=== PATIENT | female | born 1980 | race Caucasian/White ===

== ENCOUNTER 2017-10-28 09:01 | Emergency (ER) | payer OTHER ==
[~2017-10-28] VITALS: Ht 160 cm; Wt 90.7 kg
[~2017-10-28 09:01] MED LIST: ALB17R INH; AZIT-9 PO; CETI1TAB75 PO; LACT1CAP6 PO; SULF-170 PO
--- NOTE | 2017-10-28 09:03 | ER Report ---
History and Physical Time Seen By MD: 09:02 HPI/ROS CHIEF COMPLAINT: Left-sided back pain HISTORY OF PRESENT ILLNESS: Patient is a 37-year-old female who presents to the emergency department with sudden onset of acute left flank and back pain. The pain began as a dull ache and rapidly increased in intensity is now radiating to the left groin area. It is currently 10 out of 10 and associated with nausea but no vomiting. Patient has no prior history of similar episodes denies any traumatic injury. She denies dysuria she denies fevers or chills. REVIEW OF SYSTEMS: Respiratory: No cough, no dyspnea. Cardiovascular: No chest pain, no palpitations. Gastrointestinal: No vomiting, no abdominal pain. Nausea Musculoskeletal: Left flank pain Allergies: Coded Allergies: No Known Allergies (Verified Allergy, Mild, 10/23/12) Home Meds Reported Medications Levothyroxine Sodium (LEVOTHYROXINE SODIUM) 100 Mcg Tablet, 100 MCG PO QDAY, TAB 10/28/17 Omeprazole (OMEPRAZOLE) 40 Mg Capsule.dr, 40 MG PO QDAY, CAP 10/28/17 Discontinued Reported Medications Azithromycin (Azithromycin) 250 Mg Tablet, 250 MG PO QDAY, #4 10/23/12 Azithromycin (Azithromycin) 250 Mg Tablet, 250 MG PO Q4H, #4 10/23/12 P-Ephed Hcl/Cetirizine Hcl (Zyrtec-D Tablet) 1 Tab.sr .12 H Tab.sr.12h, 1 TAB.SR PO BID, 0 Refills 04/04/09 Albuterol (Proventil Inhaler) 17 Gm Inh, 0 INH PRN, 0 Refills 1-2 PUFFS 04/04/09 Past Medical/Surgical History Noncontributory Hx Smoking: No Constitutional Vital Sign - Last 24 Hours 10/28/17 09:06 Temp 98.7 Pulse 78 Resp 18 B/P (MAP) 138/84 Pulse Ox 92 O2 Delivery Room Air Physical Exam General/Constitutional: Patient is awake, alert, nontoxic and in no acute respiratory distress. Appears in significant amount of pain Head: Normocephalic and atraumatic. Eyes: Conjunctival clear, Pupils are equal and reactive to light. Extraocular muscles are intact and symmetrical. Sclera are clear and anicteric. Ears:External canals are clear. Tympanic membranes are clear with normal landmarks and light reflex. Oropharyngeal: Mucous membranes are moist. Cardiovascular: Heart is regular rate and rhythm without audible murmurs, rubs or gallops. Pulmonary: Lungs are clear to auscultation bilaterally. There are no wheezes, rales, or rhonchi. Chest rise is symmetrical Abdomen: Soft, nontender, no guarding or peritoneal signs. Left-sided flank pain Extremities: No gross deformities, No peripheral cyanosis. Able to move all 4 extremities. Neuro: Alert Skin: No rashes, skin is warm dry and well perfused. Medical Decision Making Data Points Result Diagram: 10/28/17 0915 Laboratory Hematology Test 10/28/17 09:05 10/28/17 09:15 Urine HCG, Qualitative Negative (NEGATIVE) Sodium Level 140 mmol/L (137-145) Potassium Level 4.3 mmol/L (3.5-5.0) Chloride Level 102 mmol/L (98-107) Carbon Dioxide Level 23 mmol/L (22-31) Blood Urea Nitrogen 15 mg/dl (7-18) Creatinine 1.00 mg/dl (0.52-1.04) Glomerular Filtration Rate Calc > 60.0 Random Glucose 137 mg/dl (75-110) Calcium Level 9.5 mg/dl (8.4-10.2) Chemistry Test 10/28/17 09:05 10/28/17 09:15 Urine HCG, Qualitative Negative (NEGATIVE) Glomerular Filtration Rate Calc > 60.0 Calcium Level 9.5 mg/dl (8.4-10.2) Urinalysis Test 10/28/17 09:05 Urine HCG, Qualitative Negative (NEGATIVE) EKG/Imaging Imaging FACILITY: [facility] PATIENT NAME: Fatoumata Castro : 1980 MR: [id number] V: [id number] EXAM DATE: ORDERING PHYSICIAN: RD THOMAS TECHNOLOGIST: Location: [facility] Patient: Fatoumata Castro : 1980 Visit/Account:[id number] Date of Sevice: 10/28/2017 ABDOMEN/PELVIS W/O CONTRAST HISTORY: Left flank pain down into groin since 6:00 AM TECHNIQUE: Axial images acquired through the abdomen/pelvis. Coronal and sagittal reformatting also performed. No IV contrast administered. Dose Lowering Technique One of the following dose optimization techniques was utilized in the performance of this exam: Automated exposure control; adjustment of the mA and/ or kV according to the patient's size; or use of an iterative reconstruction technique. Specific details can be referenced in the facility's radiology CT exam operational policy. COMPARISON: None. FINDINGS: Visualized lung bases: There is a 4 mm noncalcified nodule lateral aspect of the left lower lobe best seen on image seven of series 5 . There is a 3 mm punctate calcified nodule abutting the major fissure on the right best seen on image 16 and a 5.8 mm noncalcified nodule posterior aspect right lower lobe best seen on image 45. There is a 3 mm subpleural nodule lateral aspect right lower lobe best seen on image 51 Hepatobiliary: Negative. Spleen: Negative. Adrenals: Negative. Pancreas: Negative. Kidneys ureters and bladder: There is a moderate left hydronephrosis and left hydroureter secondary to a 3 mm calculus in the distal left ureter. There is an additional 3 mm calcification at the left UVJ which may be within the ureter. There are several nonobstructing calculi seen in the left renal collecting system measuring up to 2 mm in diameter Genitalia: There is an IUD within the uterus GI: Negative. Vessels/spaces/nodes: Negative. Bones/soft tissues: There is a small umbilical hernia containing fat. There is a broad-based disc bulge at L5-S1 Additional findings: None pertinent. IMPRESSION: There is a moderate left hydronephrosis and left hydroureter secondary to a 3 mm calculus in the distal left ureter. There is additional 3 mm calcination at the left UVJ which may be within the distal left ureter as well.. Several nonobstructing calculi are seen in the left renal collecting system measuring up to 2 mm in diameter There are several bilateral pulmonary nodules measuring up to 5.8 mm in diameter. The Fleischner Society recommendations are as follows For multiple nodules measuring less than 6 mm, in a low risk patient (minimal or absent smoking history, no history of malignancy), no routine followup is recommended. In a high risk patient (smoking or malignancy history), optional 12 month followup can be obtained. Small focal hernia containing fat Broad-based disc bulge L5-S1 Report Dictated By: Annalisa Henning MD at 10/28/2017 10:00 AM Report E-Signed By: Annalisa Henning MD at 10/28/2017 10:11 AM WSN:SILVANA ED Course/Re-evaluation ED Course 10/28/2017 9:38:40 am history and physical exam consistent with possible renal colic. Plan at this time will be IV we will get blood work for her basic metabolic panel urinalysis and test. We will give IV pain medications with IV Toradol, IV Dilaudid and IV Zofran. CT scan of the abdomen and pelvis was ordered and pending at this time Decision to Disposition Date: Oct 28, 2017 Decision to Disposition Time: 10:21 Depart Departure Latest Vital Signs Vital Signs Date Time Temp Pulse Resp B/P (MAP) Pulse Ox O2 Delivery O2 Flow Rate FiO2 10/28/17 09:06 98.7 78 18 138/84 92 Room Air Impression: Primary Impression: Kidney stone on left side Condition: Improved Disposition: HOME OR SELF-CARE Referrals: JACOBO SLADE MD (PCP) SAMUEL MILAN MD 2 Days If symptoms persist New Scripts Ondansetron Hcl (ZOFRAN) 4 Mg Tablet 4 MG PO Q8H for Nausea, #15 TAB 0 Refills Prov: RD THOMAS MD 10/28/17 Oxycodone Hcl/Acetaminophen (PERCOCET 5-325 MG TABLET) 1 Each Tablet 1-2 EACH PO Q4-6H for PAIN, #30 TAB 0 Refills Prov: RD THOMAS MD 10/28/17 Departure Forms: ER Transition Record, Medications Reconciliation, Off Work/ School Form, School or Work Release?: Work Number of days to be released: 2 Patient Portal Information Patient Instructions: Kidney Stones (ED) Additional Instructions: Return to the emergency department any time if your pain is not controlled on your discharge pain medications return immediately if you develop fever or painful urination, follow-up either in the emergency department or with urology in 2-[address] days if symptoms persist [address] THOMAS MD Oct 28, 2017 09:03
[2017-10-28] MEDS ORDERED: ONDANSETRON 4 MG/2 ML VIAL IVP ONE (09:20)
[2017-10-28] MEDS ORDERED: HYDROmorphone(ER ONLY) 1 MG/ML IVP ONE (09:20)
[2017-10-28] MEDS ORDERED: KETOROLAC 15 MG/ML VIAL IVP ONE (09:20)
[2017-10-28] MEDS ORDERED: NS(*) 0.9% 1000 ML BAG 1,000 ML IV ONE (09:22)
[2017-10-28] MEDS ORDERED: OMEP40CA48 PO (09:28)
[2017-10-28] MEDS ORDERED: LEVO-3 PO (09:28)
--- NOTE | 2017-10-28 10:16 | RADIOLOGY IMAGING REPORT ---
FACILITY: [facility] [place] PATIENT NAME: Fatoumata Castro : 1980 MR: [id number] V: [id number] EXAM DATE: ORDERING PHYSICIAN: RD THOMAS TECHNOLOGIST: Location: [facility] Patient: Fatoumata Castro : 1980 Visit/Account:[id number] Date of Sevice: 10/28/2017 ABDOMEN/PELVIS W/O CONTRAST HISTORY: Left flank pain down into groin since 6:00 AM TECHNIQUE: Axial images acquired through the abdomen/pelvis. Coronal and sagittal reformatting also performed. No IV contrast administered. Dose Lowering Technique One of the following dose optimization techniques was utilized in the performance of this exam: Autom ated exposure control; adjustment of the mA and/or kV according to the patient's size; or use of an i terative reconstruction technique. Specific details can be referenced in the facility's radiology C T exam operational policy. COMPARISON: None. FINDINGS: Visualized lung bases: There is a 4 mm noncalcified nodule lateral aspect of the left lower lobe bes t seen on image seven of series 5 . There is a 3 mm punctate calcified nodule abutting the major fi ssure on the right best seen on image 16 and a 5.8 mm noncalcified nodule posterior aspect right lowe r lobe best seen on image 45. There is a 3 mm subpleural nodule lateral aspect right lower lobe best seen on image 51 Hepatobiliary: Negative. Spleen: Negative. Adrenals: Negative. Pancreas: Negative. Kidneys ureters and bladder: There is a moderate left hydronephrosis and left hydroureter secondary t o a 3 mm calculus in the distal left ureter. There is an additional 3 mm calcification at the left U VJ which may be within the ureter. There are several nonobstructing calculi seen in the left renal c ollecting system measuring up to 2 mm in diameter Genitalia: There is an IUD within the uterus GI: Negative. Vessels/spaces/nodes: Negative. Bones/soft tissues: There is a small umbilical hernia containing fat. There is a broad-based disc b ulge at L5-S1 Additional findings: None pertinent. IMPRESSION: There is a moderate left hydronephrosis and left hydroureter secondary to a 3 mm calculus in the dist al left ureter. There is additional 3 mm calcination at the left UVJ which may be within the distal left ureter as well.. Several nonobstructing calculi are seen in the left renal collecting system me asuring up to 2 mm in diameter There are several bilateral pulmonary nodules measuring up to 5.8 mm in diameter. The Fleischner Soc iety recommendations are as follows For multiple nodules measuring less than 6 mm, in a low risk brad ent (minimal or absent smoking history, no history of malignancy), no routine followup is recommended . In a high risk patient (smoking or malignancy history), optional 12 month followup can be obtained . Small focal hernia containing fat Broad-based disc bulge L5-S1 Report Dictated By: Annalisa Henning MD at 10/28/2017 10:00 AM Report E-Signed By: Annalisa Henning MD at 10/28/2017 10:11 AM WSN:SILVANA
[2017-10-28] MEDS ORDERED: OXYC-865 PO (10:28)
[2017-10-28] MEDS ORDERED: ONDA4TAB97 PO (10:28)
[2017-10-28 10:30] VITALS: BP 127/72
== END 2017-10-28 10:34 | disposition home or self-care (01) ==
LOC: ER 09:01
DX: N20.0 Calculus of kidney (principal)
CPT/HCPCS: 74176; 81025; 96361; 96374; 96375; 99284; J1170; J1885; J2405; J7030; 82310; 82374; 82435; 82565; 82947; 84132; 84295; 84520